=== PATIENT | male | born 1985 | race Hispanic/Latino ===

== ENCOUNTER 2019-07-04 14:08 | Emergency (ER) | payer OTHER ==
[2019-07-04] MEDS ORDERED: FLUORESCEIN SODIUM 1 MG/WRAP ONE (15:24)
[2019-07-04] MEDS ORDERED: TETRACAINE HCL 0.5% 4ML OPTH ONE (15:26)
--- NOTE | 2019-07-04 15:55 | EDPHYS ---
Physician Documentation [facility] Name: Eros Salazar Age: 34 yrs Sex: Male : 1985 Arrival Date: 07/04/2019 Time: 14:14 Bed 14 Private MD: ED Physician Rock Aguirre HPI: 07/04 15:46 This 34 yrs old Male presents to ER via EMS with complaints of Foreign object gabe in left eye. 15:46 to the left eye. Onset: The symptoms/episode began/occurred just prior to arrival. gabe Duration: the symptoms are continuous. Aggravated by blinking, closing eye. Associated signs and symptoms: Pertinent positives: None. Pertinent negatives: None. Severity of symptoms: At their worst the symptoms were mild in the emergency department the symptoms are unchanged. The patient has not experienced similar symptoms in the past. Historical: - Allergies: 14:06 No Known Allergies; rb1 - Home Meds: 14:06 None [Active]; rb1 - PMHx: 14:06 None; rb1 - PSHx: 14:06 Appendectomy; rb1 - Immunization history:: Last tetanus immunization: unknown. - Social history:: Smoking status: Patient/guardian denies using tobacco. - Ebola Screening: : Patient negative for fever greater than or equal to 101.5 degrees Fahrenheit, and additional compatible Ebola Virus Disease symptoms. - Family history:: not pertinent. ROS: 15:46 Constitutional: Negative for fever, chills, and weight loss, ENT: Negative for injury, gabe pain, and discharge, Neck: Negative for injury, pain, and swelling, Cardiovascular: Negative for chest pain, palpitations, and edema, Respiratory: Negative for shortness of breath, cough, wheezing, and pleuritic chest pain, Abdomen/GI: Negative for abdominal pain, nausea, vomiting, diarrhea, and constipation, Back: Negative for injury and pain, : Negative for injury, bleeding, discharge, and swelling, MS/Extremity: Negative for injury and deformity, Skin: Negative for injury, rash, and discoloration, Neuro: Negative for headache, weakness, numbness, tingling, and seizure, Psych: Negative for depression, anxiety, suicide ideation, homicidal ideation, and hallucinations, Allergy/Immunology: Negative for hives, rash, and allergies, Endocrine: Negative for neck swelling, polydipsia, polyuria, polyphagia, and marked weight changes, Hematologic/Lymphatic: Negative for swollen nodes, abnormal bleeding, and unusual bruising. 15:46 Eyes: Positive for pain. Exam: 15:46 Constitutional: This is a well developed, well nourished patient who is awake, alert, gabe and in no acute distress. Head/Face: Normocephalic, atraumatic. ENT: Nares patent. No nasal discharge, no septal abnormalities noted. Tympanic membranes are normal and external auditory canals are clear. Oropharynx with no redness, swelling, or masses, exudates, or evidence of obstruction, uvula midline. Mucous membranes moist. Neck: Trachea midline, no thyromegaly or masses palpated, and no cervical lymphadenopathy. Supple, full range of motion without nuchal rigidity, or vertebral point tenderness. No Meningismus. Chest/axilla: Normal chest wall appearance and motion. Nontender with no deformity. No lesions are appreciated. Cardiovascular: Regular rate and rhythm with a normal S1 and S2. No gallops, murmurs, or rubs. Normal PMI, no JVD. No pulse deficits. Respiratory: Lungs have equal breath sounds bilaterally, clear to auscultation and percussion. No rales, rhonchi or wheezes noted. No increased work of breathing, no retractions or nasal flaring. Abdomen/GI: Soft, non-tender, with normal bowel sounds. No distension or tympany. No guarding or rebound. No evidence of tenderness throughout. Back: No spinal tenderness. No costovertebral tenderness. Full range of motion. Skin: Warm, dry with normal turgor. Normal color with no rashes, no lesions, and no evidence of cellulitis. MS/ Extremity: Pulses equal, no cyanosis. Neurovascular intact. Full, normal range of motion. Neuro: Awake and alert, GCS 15, oriented to person, place, time, and situation. Cranial nerves II-XII grossly intact. Motor strength 5/5 in all extremities. Sensory grossly intact. Cerebellar exam normal. Normal gait. Psych: Awake, alert, with orientation to person, place and time. Behavior, mood, and affect are within normal limits. 15:46 Eyes: Periorbital structures: appear normal, no acute changes, Pupils: no acute changes, equal, round, and reactive to light and accomodation, Extraocular movements: no acute changes, Conjunctiva: normal, no acute changes, Corneas: are normal, no acute changes, Sclera: no appreciated abnormality, icterus, Anterior chamber: normal, no acute changes, Lids and lashes: appear normal, no acute changes, no evidence of trauma, funduscopic exam reveals no obvious abnormalities, no acute changes, no appreciated papilledema, no retinal detachment, no enlargement of the optic cup, no appreciated A-V knicking, no evidence of cotton wool exudatates, no flame hemorrhages, no macular jay red spot, no afferent papillary defect. Vital Signs: 14:06 BP 111 / 79; Pulse 82; Resp 17; Temp 98.5(O); Pulse Ox 98% on R/A; Weight 79.83 kg (R); rb1 Height 5 ft. 6 in. (167.64 cm) (R); Pain 2/10; 15:00 BP 110 / 78; Pulse 70; Resp 16; Temp 98.4(TE); Pulse Ox 98% on R/A; Pain 2/10; rb1 16:00 BP 114 / 86; Pulse 63; Resp 16; Temp 98.4(O); Pulse Ox 98% on R/A; Pain 0/10; rb1 14:06 Body Mass Index 28.41 (79.83 kg, 167.64 cm) rb1 Visual Acuity: 14:06 ; Pt. reports normal vision rb1 Procedures: 15:53 Foreign Body Removal: none. gabe MDM: 14:48 Patient medically screened. gabe 14:48 Patient medically screened. gabe 15:51 Data reviewed: vital signs, nurses notes. [facility] 07/04 16:39 Order name: Eye Tray; Complete Time: 16:39 rb1 Administered Medications: 15:40 Drug: Tetracaine Drops 0.5 % 1 drops Route: Ophthalmic; Site: left eye; rb1 15:55 Follow up: Response: No adverse reaction rb1 Disposition: 07/04/19 15:52 Discharged to Home. Impression: Ocular pain, left eye. - Condition is Stable. - Discharge Instructions: Eye Foreign Body, Ear Foreign Body, [id number]. - Medication Reconciliation Form, Thank You Letter, Antibiotic Education, Prescription Opioid Use form. - Follow up: Private Physician; When: 1 - 2 days; Reason: Recheck today's complaints, Continuance of care, Re-evaluation by your physician. Follow up: Taye Moore MD; When: 2 - 3 days; Reason: Recheck today's complaints, Re-evaluation by your physician. - Problem is new. - Symptoms have improved. Signatures: Rock Aguirre MD MD cha Barber, Rebecca RN RN rb1 Corrections: (The following items were deleted from the chart) 16:39 15:52 07/04/2019 15:52 Discharged to Home. Impression: Ocular pain, left eye. Condition rb1 is Stable. Forms are Medication Reconciliation Form, Thank You Letter, Antibiotic Education, Prescription Opioid Use. Follow up: Private Physician; When: 1 - 2 days; Reason: Recheck today's complaints, Continuance of care, Re-evaluation by your physician. Follow up: Taye Moore; When: 2 - 3 days; Reason: Recheck today's complaints, Re-evaluation by your physician. Problem is new. Symptoms have improved. gabe
--- NOTE | 2019-07-04 15:55 | ER ---
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 EMS flushed the eye for 20 minutes while in route to the hospital. BP 105/57, P 72, R 16, 99% RA T 98.5. Pupils are equal and reactive. Denies pain. Transition of care: patient was not received from another setting of care. Onset of symptoms was July 04, 2019. Risk Assessment: Do you want to hurt yourself or someone else? Patient reports no desire to harm self or others. Initial Sepsis Screen: Does the patient meet any 2 criteria? No. Patient's initial sepsis screen is negative. Does the patient have a suspected source of infection? No. Patient's initial sepsis screen is negative. Care prior to arrival: EMS flushed eye for 20 minutes while in route. 14:06 Method Of Arrival: EMS: [facility] rb1 14:06 Acuity: MAHENDRA 3 rb1 Triage Assessment: 14:06 General: Appears in no apparent distress. comfortable, Behavior is calm, cooperative. rb1 Pain: Complains of pain in left eye Pain currently is 2 out of 10 on a pain scale. EENT: Sclera/Cornea are reddened in left eye. EENT: Reports Normal vision per pt. report. Neuro: Level of Consciousness is awake, alert, obeys commands, Oriented to person, place, time, situation. Cardiovascular: Capillary refill < 3 seconds is brisk in bilateral fingers. Respiratory: Airway is patent Respiratory effort is even, unlabored, Respiratory pattern is regular, symmetrical. GI: No signs and/or symptoms were reported involving the gastrointestinal system. : No signs and/or symptoms were reported regarding the genitourinary system. Derm: Skin is pink, warm \T\ dry. Musculoskeletal: Range of motion: intact in all extremities. Historical: - Allergies: 14:06 No Known Allergies; rb1 - Home Meds: 14:06 None [Active]; rb1 - PMHx: 14:06 None; rb1 - PSHx: 14:06 Appendectomy; rb1 - Immunization history:: Last tetanus immunization: unknown. - Social history:: Smoking status: Patient/guardian denies using tobacco. - Ebola Screening: : Patient negative for fever greater than or equal to 101.5 degrees Fahrenheit, and additional compatible Ebola Virus Disease symptoms. - Family history:: not pertinent. Screenin:06 Abuse screen: Denies threats or abuse. Nutritional screening: No deficits noted. rb1 Tuberculosis screening: No symptoms or risk factors identified. Fall Risk None identified. Assessment: 14:06 General: See triage assessment. rb1 15:00 Reassessment: Patient appears in no apparent distress at this time. Patient and/or rb1 family updated on plan of care and expected duration. Pain level reassessed. Patient is alert, oriented x 3, equal unlabored respirations, skin warm/dry/pink. 16:00 Reassessment: Patient appears in no apparent distress at this time. Patient states rb1 feeling better. Patient states symptoms have improved. Vital Signs: 14:06 BP 111 / 79; Pulse 82; Resp 17; Temp 98.5(O); Pulse Ox 98% on R/A; Weight 79.83 kg (R); rb1 Height 5 ft. 6 in. (167.64 cm) (R); Pain 2/10; 15:00 BP 110 / 78; Pulse 70; Resp 16; Temp 98.4(TE); Pulse Ox 98% on R/A; Pain 2/10; rb1 16:00 BP 114 / 86; Pulse 63; Resp 16; Temp 98.4(O); Pulse Ox 98% on R/A; Pain 0/10; rb1 14:06 Body Mass Index 28.41 (79.83 kg, 167.64 cm) rb1 Visual Acuity: 14:06 ; Pt. reports normal vision rb1 ED Course: 14:06 Arm band placed on right wrist. rb1 14:06 Patient has correct armband on for positive identification. Bed in low position. Call rb1 light in reach. Side rails up X 1. Pulse ox on. NIBP on. 14:14 Patient arrived in ED. rb1 14:18 Triage completed. rb1 14:48 Rock Aguirre MD is Attending Physician. [facility] 15:17 Francheska Landry, RN is Primary Nurse. rb1 15:52 Taye Moore MD is Referral Physician. [facility] 16:37 No provider procedures requiring assistance completed. Patient did not have IV access rb1 during this emergency room visit. Administered Medications: 15:40 Drug: Tetracaine Drops 0.5 % 1 drops Route: Ophthalmic; Site: left eye; rb1 15:55 Follow up: Response: No adverse reaction rb1 Outcome: 15:52 Discharge ordered by . gabe 16:37 Discharged to home ambulatory, with friend. rb1 16:37 Condition: stable 16:37 Discharge instructions given to patient, Instructed on discharge instructions, follow up and referral plans. Demonstrated understanding of instructions, follow-up care, Prescriptions given X none 16:39 Patient left the ED. rb1 Signatures: Rock Aguirre MD MD cha Barber, Rebecca, RN RN rb1
== END 2019-07-04 16:39 | disposition home or self-care (01) ==
LOC: ER 14:08
DX: H57.12 Ocular pain, left eye (principal)
CPT/HCPCS: 99284